=== PATIENT | female | born 1955 | race Caucasian/White ===

== ENCOUNTER 2017-11-08 19:25 | Emergency (ER) | payer BC ==
[2017-11-08 19:53] LABS: BASOPHILS # (AUTO) 0.1 10^3/uL (0.0-0.1); EOSINOPHILS # (AUTO) 0.1 10^3/uL (0.0-0.7); EOSINOPHILS % (AUTO) 0.7 %; HGB - HEMOGLOBIN 15.4 g/dL (12.0-16.0); LYMPHOCYTES # (AUTO) 3.7 10^3/uL (1.5-3.5); LYMPHOCYTES % (AUTO) 35.2 %; MEAN CORPUSCULAR HEMOGLOBIN 32.7 pg (27.0-31.0); MEAN CORPUSCULAR VOLUME 99.2 fL (81.0-99.0); MEAN PLATELET VOLUME 9.6 fL (7.9-10.8); MONOCYTES # (AUTO) 0.9 10^3/uL (0.0-1.0); MONOCYTES % (AUTO) 8.1 %; NEUTROPHILS # (AUTO) 5.8 10^3/uL (1.5-6.6); PLT - PLATELET COUNT 254 10^3/uL (130-450); RED CELL DISTRIBUTION WIDTH 13.6 % (12.0-15.0); WHITE BLOOD COUNT 10.6 x10^3/uL (4.8-10.8)
[2017-11-08 20:07] LABS: ALBUMIN 4.7 g/dL (3.2-5.5); ALBUMIN/GLOBULIN RATIO 1.4 (1.0-2.2); BILIRUBIN,TOTAL 1.9 mg/dL (0.2-1.0); CALCIUM 9.6 mg/dL (8.5-10.3); CREATININE 0.8 mg/dL (0.4-1.0)
[2017-11-08] MEDS ORDERED: SODIUM CHLORIDE 0.9% 1,000 ML IV ONE ×2 (20:18)
[2017-11-08] MEDS ORDERED: LORazepam 2 MG/ML VIAL IVP STA (20:38)
--- NOTE | 2017-11-08 20:44 | ED Physician Documentation ---
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 She has also traveled back and forth to [place] recently. Concerned that her blood pressure is been higher than usual and concerned that her heart rate was elevated today. She denies any chest pain, shortness of breath, syncope or near syncope. No abdominal pain. No vomiting or diarrhea. No medications. States she has not seen a doctor for several years. Denies any smoking or drug use. States rarely uses etoh Review of Systems Ten Systems: 10 systems reviewed and negative Constitutional: denies: Fever, Chills Ears: denies: Ear pain Nose: denies: Rhinorrhea / runny nose, Congestion Throat: denies: Sore throat Cardiac: denies: Chest pain / pressure, Pedal edema, Calf pain Respiratory: denies: Dyspnea, Cough, Hemoptysis, Wheezing GI: denies: Nausea, Vomiting, Diarrhea Skin: denies: Rash Musculoskeletal: denies: Neck pain, Back pain Neurologic: denies: Generalized weakness, Focal weakness, Numbness, Syncope, Seizure, Confused, Altered mental status, Headache PD PAST MEDICAL HISTORY - Past Medical History Past Medical History: No - Past Surgical History Past Surgical History: No - Present Medications Home Medications: Ambulatory Orders Medication Instructions Recorded Confirmed Metoprolol Succinate [Toprol Xl] 25 mg PO DAILY #30 tablet 11/08/17 - Allergies Allergies/Adverse Reactions: Allergies Allergy/AdvReac Type Severity Reaction Status Date / Time No Known Drug Allergies Allergy Verified 11/08/17 20:47 - Social History Does the pt smoke?: No Smoking Status: Never smoker Does the pt drink ETOH?: No Does the pt have substance abuse?: No - Immunizations Immunizations are current?: Yes PD ED PE NORMAL - Vitals Vital signs reviewed: Yes - General General: Alert and oriented X 3 - HEENT HEENT: PERRL, Ears normal, Moist mucous membranes, Pharynx benign - Neck Neck: Supple, no meningeal sign - Cardiac Cardiac: RRR, Strong equal pulses - Respiratory Respiratory: No respiratory distress, Clear bilaterally - Abdomen Abdomen: Soft, Non tender, Non distended - Back Back: No spinal TTP - Derm Derm: Warm and dry - Extremities Extremities: No edema, No calf tenderness / cord - Neuro Neuro: Alert and oriented X 3 - Psych Psych: Normal mood, Normal affect Results - Vitals Vitals: Vital Signs - 24 hr 11/08/17 11/08/17 19:29 21:34 Temperature 35.9 C L Heart Rate 135 H 109 H Respiratory 20 21 Rate Blood Pressure 173/89 H 139/85 H O2 Saturation 100 99 Oxygen O2 Source Room air - EKG (time done) 1934 Rate: Rate (enter#) (126) Rhythm: Sinus tachycardia [place]: Normal Intervals: Normal [place] QRS: Normal Ischemia: Normal ST segments Computer interpretation: Agree with computer - Labs Labs: Laboratory Tests 11/08/17 11/08/17 11/08/17 19:45 19:45 19:45 WBC 10.6 RBC 4.70 Hgb 15.4 Hct 46.6 MCV 99.2 H MCH 32.7 H MCHC 33.0 RDW 13.6 Plt Count 254 MPV 9.6 Neut # (Auto) 5.8 Lymph # (Auto) 3.7 H [place] # (Auto) 0.9 Eos # (Auto) 0.1 Baso # (Auto) 0.1 Absolute Nucleated RBC 0.00 Nucleated RBC % 0.0 D-Dimer Sodium 137 Potassium 3.4 L Chloride 102 Carbon Dioxide 26 Anion Gap 9.0 BUN 17 Creatinine 0.8 Estimated GFR (MDRD) 73 L Glucose 170 H Calcium 9.6 Total Bilirubin 1.9 H AST 24 ALT 23 Alkaline Phosphatase 66 Troponin I < 0.04 Total Protein 8.0 Albumin 4.7 Globulin 3.3 Albumin/Globulin Ratio 1.4 Lipase 33 TSH Free T4 11/08/17 11/08/17 19:48 19:48 WBC RBC Hgb Hct MCV MCH MCHC RDW Plt Count MPV Neut # (Auto) Lymph # (Auto) [place] # (Auto) Eos # (Auto) Baso # (Auto) Absolute Nucleated RBC Nucleated RBC % D-Dimer 224.5 Sodium Potassium Chloride Carbon Dioxide Anion Gap BUN Creatinine Estimated GFR (MDRD) Glucose Calcium Total Bilirubin AST ALT Alkaline Phosphatase Troponin I Total Protein Albumin Globulin Albumin/Globulin Ratio Lipase TSH 2.05 Free T4 1.19 PD MEDICAL DECISION MAKING - ED course Complexity details: reviewed results, re-evaluated patient, considered differential, d/w patient, d/w family ED course: Patient is a 62-year-old female with sinus tachycardia and hypertension. She has had hypertension for years, but never been treated. States her resting pulse is normally in the 90s. She feels better after IV fluids. We will start her on a low-dose beta-nitesh and follow-up with her doctor for further care. She is well-appearing, nontoxic. Afebrile. No evidence of pulmonary embolism. No evidence of acute GA. No syncope or near syncope. Patient counseled regarding signs and symptoms for which I believe and urgent re-evaluation would be necessary. Patient with good understanding of and agreement to plan and is comfortable going home at this time This document was made in part using voice recognition software. While efforts are made to proofread this document, sound alike and grammatical errors may occur. - Sepsis Event Vital Signs: Vital Signs - 24 hr 11/08/17 11/08/17 19:29 21:34 Temperature 35.9 C L Heart Rate 135 H 109 H Respiratory 20 21 Rate Blood Pressure 173/89 H 139/85 H O2 Saturation 100 99 Oxygen O2 Source Room air Departure - Departure Disposition: 01 Home, Self Care Clinical Impression: Sinus tachycardia Hypertension Qualifiers: Hypertension type: unspecified Qualified Code(s): I10 - Essential (primary) hypertension Condition: Good Instructions: ED Hypertension New Begin Tx Follow-Up: [facility] [Provider Group] - Within 1 week Prescriptions: Metoprolol Succinate [Toprol Xl] 25 mg PO DAILY #30 tablet Comments: Take the new medication as prescribed. Return if you worsen. The cause of your elevated heart rate is unclear, but your thyroid testing and testing for blood clots in the lungs is negative today. You need to follow-up with your doctor for further evaluation. Discharge Date/Time: 11/08/17 21:44
[2017-11-08 20:59] LABS: THYROID STIMULATING HORMONE 2.05 uIU/mL (0.34-5.60)
[2017-11-08 21:01] LABS: FREE T4 (FREE THYROXINE) 1.19 ng/dL (0.58-1.64)
[2017-11-08] MEDS ORDERED: METOPROLOL TARTRATE 50 MG TABLET PO STA (21:22)
[2017-11-08 21:35] VITALS: BP 139/85
== END 2017-11-08 21:44 | disposition home or self-care (01) ==
LOC: ED 19:25
DX: R00.0 Tachycardia, unspecified (principal); I10 Essential (primary) hypertension
CPT/HCPCS: 36415; 80053; 83690; 84439; 84443; 84484; 85025; 85379; 93005; 96361; 96374; 99283; A9270; J2060

== ENCOUNTER 2017-11-11 17:08 | Emergency (ER) | payer BC ==
[2017-11-11 17:46] LABS: BASOPHILS # (AUTO) 0.1 10^3/uL (0.0-0.1); BASOPHILS % (AUTO) 0.8 %; EOSINOPHILS # (AUTO) 0.1 10^3/uL (0.0-0.7); EOSINOPHILS % (AUTO) 0.8 %; HGB - HEMOGLOBIN 15.3 g/dL (12.0-16.0); LYMPHOCYTES # (AUTO) 2.8 10^3/uL (1.5-3.5); LYMPHOCYTES % (AUTO) 36.6 %; MEAN CORPUSCULAR HEMOGLOBIN 33.6 pg (27.0-31.0); MEAN CORPUSCULAR HGB CONC 33.7 g/dL (32.0-36.0); MEAN CORPUSCULAR VOLUME 99.8 fL (81.0-99.0); MEAN PLATELET VOLUME 9.5 fL (7.9-10.8); MONOCYTES # (AUTO) 0.6 10^3/uL (0.0-1.0); MONOCYTES % (AUTO) 7.4 %; NEUTROPHILS # (AUTO) 4.1 10^3/uL (1.5-6.6); NEUTROPHILS % (AUTO) 54.4 %; PLT - PLATELET COUNT 217 10^3/uL (130-450); RED BLOOD COUNT 4.55 10^6/uL (4.20-5.40); RED CELL DISTRIBUTION WIDTH 13.2 % (12.0-15.0); WHITE BLOOD COUNT 7.6 x10^3/uL (4.8-10.8)
[2017-11-11 17:58] LABS: ALBUMIN 4.4 g/dL (3.2-5.5); ALBUMIN/GLOBULIN RATIO 1.4 (1.0-2.2); BILIRUBIN,TOTAL 0.9 mg/dL (0.2-1.0); CALCIUM 9.3 mg/dL (8.5-10.3); CREATININE 0.6 mg/dL (0.4-1.0); TOTAL PROTEIN 7.5 g/dL (6.7-8.2)
[2017-11-11 18:33] VITALS: BP 153/98
--- NOTE | 2017-11-11 18:55 | ED Physician Documentation ---
PD HPI CHEST PAIN - Stated complaint Stated Complaint: FAST HEART RATE/ACHES - Chief complaint Chief Complaint: Cardiac - History obtained from History obtained from: Patient - History of Present Illness Timing - onset: Other (62-year-old woman has been under a lot of stress lately caring for her grandchildren. She is noticed some chest cramping and some very mild left arm pains that she thinks she might be making up. She was worried about her blood pressure and was seen here the other day and had a thorough workup including CBC, TSH, d-dimer and troponin all of which were negative. She started on metoprolol which has helped but she still having some persistent chest cramping and worried about her blood pressure still and heart rate still.) Review of Systems Constitutional: denies: Fever, Chills, Fatigue Cardiac: denies: Palpitations Respiratory: denies: Dyspnea, Hemoptysis, Wheezing PD PAST MEDICAL HISTORY - Past Medical History Past Medical History: Yes Cardiovascular: Hypertension - Past Surgical History Past Surgical History: No - Present Medications Home Medications: Ambulatory Orders Medication Instructions Recorded Confirmed Metoprolol Succinate [Toprol Xl] 25 mg PO DAILY #30 tablet 11/08/17 11/11/17 Metoprolol Succinate 25 mg PO BID #60 tab.er.24h 11/11/17 - Allergies Allergies/Adverse Reactions: Allergies Allergy/AdvReac Type Severity Reaction Status Date / Time No Known Drug Allergies Allergy Verified 11/11/17 17:27 - Social History Does the pt smoke?: No Smoking Status: Never smoker Does the pt drink ETOH?: No Does the pt have substance abuse?: No - Immunizations Immunizations are current?: Yes PD ED PE NORMAL - Vitals Vital signs reviewed: Yes (Heart rate 90 on my exam) - General General: Alert and oriented X 3 (Anxious) - Cardiac Cardiac: RRR, No murmur - Respiratory Respiratory: No respiratory distress, Clear bilaterally - Abdomen Abdomen: Non tender - Extremities Extremities: No edema, No calf tenderness / cord - Neuro Neuro: Alert and oriented X 3, Normal speech Results - Vitals Vitals: Vital Signs - 24 hr 11/11/17 11/11/17 11/11/17 17:25 18:32 18:58 Temperature 36.9 C Heart Rate 117 H 90 88 Respiratory 18 18 18 Rate Blood Pressure 163/101 H 153/98 H 153/98 H O2 Saturation 99 98 97 Oxygen O2 Source Room air - EKG (time done) 1927 Rate: Rate (enter#) (109) Rhythm: Sinus tachycardia [place]: Normal Intervals: Normal [place] QRS: Normal Ischemia: Normal ST segments Compare to prior EKG: Unchanged from prior EKG Computer interpretation: Agree with computer - Labs Labs: Laboratory Tests 11/11/17 11/11/17 11/11/17 17:39 17:39 17:39 WBC 7.6 RBC 4.55 Hgb 15.3 Hct 45.4 MCV 99.8 H MCH 33.6 H MCHC 33.7 RDW 13.2 Plt Count 217 MPV 9.5 Neut # (Auto) 4.1 Lymph # (Auto) 2.8 [place] # (Auto) 0.6 Eos # (Auto) 0.1 Baso # (Auto) 0.1 Absolute Nucleated RBC 0.01 Nucleated RBC % 0.1 Sodium 136 Potassium 3.6 Chloride 102 Carbon Dioxide 25 Anion Gap 9.0 BUN 15 Creatinine 0.6 Estimated GFR (MDRD) 101 Glucose 160 H Calcium 9.3 Total Bilirubin 0.9 AST 17 ALT 18 Alkaline Phosphatase 55 Troponin I < 0.04 Total Protein 7.5 Albumin 4.4 Globulin 3.1 Albumin/Globulin Ratio 1.4 Lipase 29 PD MEDICAL DECISION MAKING - ED course ED course: 62-year-old with persistent blood pressure and heart rate concerns, seems like it stress related, workup again negative, no need to repeat the d-dimer or thyroid hormone studies. We will double her metoprolol. - Sepsis Event Vital Signs: Vital Signs - 24 hr 11/11/17 11/11/17 11/11/17 17:25 18:32 18:58 Temperature 36.9 C Heart Rate 117 H 90 88 Respiratory 18 18 18 Rate Blood Pressure 163/101 H 153/98 H 153/98 H O2 Saturation 99 98 97 Oxygen O2 Source Room air Departure - Departure Disposition: 01 Home, Self Care Clinical Impression: Sinus tachycardia Hypertension Qualifiers: Hypertension type: essential hypertension Qualified Code(s): I10 - Essential ( primary) hypertension Condition: Good Record reviewed to determine appropriate education?: Yes Instructions: ED Chest Pain NonCardiac Prescriptions: Metoprolol Succinate 25 mg PO BID #60 tab.er.24h Comments: Follow-up with the new physician as scheduled, double the metoprolol to twice a day. Return if worse. Discharge Date/Time: 11/11/17 19:01
== END 2017-11-11 19:01 | disposition home or self-care (01) ==
LOC: ED 17:08
DX: R00.0 Tachycardia, unspecified (principal); R07.9 Chest pain, unspecified; I10 Essential (primary) hypertension
CPT/HCPCS: 36415; 80053; 83690; 84484; 85025; 93005; 99283

== ENCOUNTER 2017-12-03 15:38 | Outpatient (CLI) | payer BC ==
--- NOTE | 2017-12-04 18:57 | XRAY Report ---
Procedure Date: 12/03/2017 Accession Number: [id number] / [id number] Procedure: XR - Hand 3 View BILAT CPT Code: FULL RESULT: EXAMS: 1. Right Hand Radiography 2. Left Hand Radiography EXAM DATE: 12/03/2017 03:48 PM. CLINICAL HISTORY: Persistent tachycardia. Chronic bilateral hand pain with no known trauma. COMPARISON: None. TECHNIQUE: 3 views each hand. FINDINGS: Right: Bones: Spurring is seen at the base of first metacarpal. Hypertrophic spurring is noted at the ulnar aspect greater multangular. Mild spurring ulnar aspect base distal phalanx right second digit. Negative for marginal erosion to suggest inflammatory arthritis. Joints: 1. Moderate osteoarthritis distal interphalangeal joint right second digit. 2. Severe osteoarthritis first carpometacarpal compartment with joint space narrowing, hypertrophic spurring, sclerosis and osseous fragments. 3. Mild narrowing scaphoid multangular compartment. 4. Negative for radiocarpal compartment chondrocalcinosis. Soft Tissues: Normal. No soft tissue swelling. Left: Bones: Normal. No fractures or bone lesions. Joints: 1. Severe osteoarthritis distal interphalangeal joint left fifth digit with "gull wing deformity" consistent with erosive osteoarthritis. 2. Moderate osteoarthritis distal interphalangeal joint left second digit and mild osteoarthritis distal interphalangeal joints left third and fourth digits. 3. Moderate osteoarthritis first carpometacarpal compartment with exuberant greater multangular spurring, sclerosis and joint space narrowing. 4. Narrowing of the scaphoid multangular compartment. 5. The metacarpophalangeal joints are negative for marginal erosion. Soft Tissues: Normal. No soft tissue swelling. IMPRESSION: 1. Negative for marginal erosion to suggest inflammatory arthritis. 2. 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 3. Moderate left carpometacarpal compartment osteoarthritis and severe right carpometacarpal osteoarthritis. 4. Moderate bilateral distal interphalangeal joint second digit osteoarthritis. RADIA
== END 2017-12-03 15:39 | disposition home or self-care (01) ==
LOC: DI 15:38
PROVIDERS: ATTEND Internal Medicine
DX: M19.042 Primary osteoarthritis, left hand (principal); M19.041 Primary osteoarthritis, right hand; R00.0 Tachycardia, unspecified; R01.1 Cardiac murmur, unspecified

== ENCOUNTER 2017-12-06 09:11 | Outpatient (CLI) | payer BC | END 2017-12-06 09:12 | disposition home or self-care (01) | LOC: DI 09:11 | PROVIDERS: ATTEND Internal Medicine | DX: R01.1 Cardiac murmur, unspecified (principal); R00.0 Tachycardia, unspecified | CPT/HCPCS: 93306 ==

== ENCOUNTER 2023-11-22 14:21 | Outpatient (CLI) | payer MEDICARE ==
--- NOTE | 2023-11-26 09:45 | XRAY Report ---
REVISED: THIS REPORT WAS ORIGINALLY SIGNED ON 11/26/2023 @ 9:43 AM. ORDERING PROVIDER FIELD REVISED ON 11/26/2023. PROCEDURE: Hand 1-2V BL INDICATIONS: ARTHRITIS TECHNIQUE: 2 views of the hand(s) acquired. COMPARISON: None FINDINGS: Bones: Osteopenia. No acute fracture subluxation seen. Degenerative changes of the first carpometacarpal, STT joints noted bilaterally. Severe DJD of the distal interphalangeal joints of the first through fifth digits are seen bilaterally. No acute fracture subluxation seen Soft tissues: No suspicious soft tissue calcifications or masses. IMPRESSION: Severe DJD as noted above Reviewed by: West Correia MD on 11/26/2023 9:43 AM PDT Approved by: West Correia MD on 11/26/2023 9:43 AM PDT Station ID: [id number]
== END 2023-11-22 14:22 | disposition home or self-care (01) ==
LOC: DI 14:21
PROVIDERS: ATTEND Registered Nurse
DX: M18.0 Bilateral primary osteoarthritis of first carpometacarpal joints (principal); M19.041 Primary osteoarthritis, right hand; M19.042 Primary osteoarthritis, left hand; M19.031 Primary osteoarthritis, right wrist; M19.032 Primary osteoarthritis, left wrist